=== PATIENT | female | born 1990 | race American Indian/Alaskan Native ===

== ENCOUNTER 2016-04-16 09:50 | Emergency (ER) | payer MEDICAID ==
[2016-04-16 10:07] VITALS: BP 142/76
--- NOTE | 2016-04-16 10:19 | Emergency Department Report ---
Chief Complaint: Vaginal Bleeding Stated Complaint: 8 WKS / RT SIDE PAIN Time Seen by Provider: 04/16/16 10:13 - HPI History of Present Illness: 25-year-old female presents today with right-sided lower abdominal pain since 4 AM. Patient is currently 8 weeks and admits to having some muscle spotting this morning. Denies fever, chills, nausea, vomiting, urinary symptoms , chest pain, shortness of breath. - ROS Review of Systems: Per HPI - Exam Vital Signs: Vital Signs 04/16/16 10:03 Temperature 98.3 F Pulse Rate 86 Respiratory 20 Rate Blood Pressure 142/76 O2 Sat by Pulse 100 Oximetry Physical Exam: General: 25-year-old female in no acute distress. Well-developed, well- nourished. CV: Regular rate and rhythm. Lungs: Clear to auscultation bilaterally. Abdomen: Tenderness to palpation of right lower quadrant. Positive for minimal guarding. Normal bowel sounds. MSE screening note: Focused history and physical exam performed. Due to findings the following was ordered: ED Disposition for MSE Condition: Stable
[2016-04-16 11:10] LABS: Basophils % (Auto) 0.2 % (0.0-1.8); Eosinophils % (Auto) 1.1 % (0.0-4.3); Hematocrit 36.6 % (30.3-42.9); Hemoglobin 12.1 gm/dl (10.1-14.3); Mean Corpuscular HGB Conc 33 % (30-34); Mean Corpuscular Hemoglobin 29 pg (28-32); Mean Corpuscular Volume 89 fl (79-97); Platelet Count 236 K/mm3 (140-440); Red Blood Count 4.13 M/mm3 (3.65-5.03); Red Cell Distribution Width 14.2 % (13.2-15.2); White Blood Count 10.5 K/mm3 (4.5-11.0)
[2016-04-16 11:23] LABS: Bilirubin,Urine NEG (Negative); Blood,Urine NEG (Negative); Ketones,Urine NEG (Negative); Leukocyte Esterase,Urine NEG (Negative); Mucus,Urine FEW /HPF; Nitrite,Urine NEG (Negative); Protein,Urine <15 mg/dL mg/dL (Negative); Urobilinogen,Urine < 2.0 mg/dL (<2.0)
[2016-04-16 11:24] LABS: Bacteria,Urine 1+ /HPF (Negative); WBC,Urine < 1.0 /HPF (0.0-6.0)
[2016-04-16 11:31] LABS: Anion Gap 20 mmol/L; BUN/Creatinine Ratio 18.57; Blood Urea Nitrogen 13 mg/dL (7-17); Calcium 9.3 mg/dL (8.4-10.2); Carbon Dioxide 22 mmol/L (22-30); Chloride 104.6 mmol/L (98-107); Glucose 87 mg/dL (65-100); Potassium 4.3 mmol/L (3.6-5.0); Sodium 142 mmol/L (137-145)
--- NOTE | 2016-04-16 14:18 | Ultrasound Report ---
ULTRASOUND OB LESS THAN 14 WEEKS - TRANSABDOMINAL AND TRANSVAGINAL INDICATION: Vaginal spotting, bleeding. Serum beta-hCG of 12,798 units. COMPARISON: None similar during this gestation. FINDINGS: Transabdominal and transvaginal pelvic sonography performed in this patient with LMP of 02/20/2016 and estimated menstrual age of 8 weeks and zero days. An anteverted, gravid uterus measuring approximately 8 x 5.6 x 6.6 cm demonstrates a single, live intrauterine gestation with heart rate of 109 beats per minute. Approximately 1.9 x 1.2 cm mid uterine fibroid posteriorly, endovaginal image 27. Mean crown-rump length of 0.4 cm corresponds to 6 weeks and zero days. Mean gestational sac diameter of 1.3 cm corresponds to 6 weeks and 1 day. Small, 4-5 mm yolk sac also seen. No significant free fluid. Cervix appears closed. Maternal right ovary not seen. Left ovary approximately 4.3 x 2.7 x 3.1 cm with an approximately 2.2 cm complex/hemorrhagic cyst. CONCLUSION: 1. Single, live intrauterine gestation with an ultrasound estimated age of 6 weeks and 1 day and DESIREE of 12/09/2016. 2. Few other findings, as above. Thank you for the opportunity to participate in this patient's care.
== END 2016-04-16 10:45 | disposition left against medical advice (07) ==
LOC: ED 09:50
DX: O26.891 Other specified pregnancy related conditions, first trimester (principal); R10.31 Right lower quadrant pain; Z3A.08 8 weeks gestation of pregnancy; Z88.8 Allergy status to other drugs, medicaments and biological substances; Z53.21 Procedure and treatment not carried out due to patient leaving prior to being seen by health care provider
CPT/HCPCS: 36415; 76801; 76817; 80048; 81001; 84702; 85025; 86900; 86901

== ENCOUNTER 2016-06-19 22:01 | Emergency (ER) | payer MEDICAID ==
[2016-06-19 22:13] VITALS: BP 129/74
[2016-06-19 22:34] LABS: Basophils % (Auto) 0.2 % (0.0-1.8); Eosinophils % (Auto) 1.4 % (0.0-4.3); Hematocrit 32.5 % (30.3-42.9); Hemoglobin 10.7 gm/dl (10.1-14.3); Mean Corpuscular HGB Conc 33 % (30-34); Mean Corpuscular Hemoglobin 29 pg (28-32); Mean Corpuscular Volume 87 fl (79-97); Platelet Count 205 K/mm3 (140-440); Red Blood Count 3.73 M/mm3 (3.65-5.03); Red Cell Distribution Width 13.7 % (13.2-15.2); White Blood Count 12.2 K/mm3 (4.5-11.0)
[2016-06-19 22:46] LABS: Alanine Aminotransferase 37 units/L (7-56); Albumin 3.3 g/dL (3.9-5); Albumin/Globulin Ratio 1.1 %; Alkaline Phosphatase 72 units/L (35-129); Anion Gap 19 mmol/L; Bilirubin,Total < 0.20 mg/dL (0.1-1.2); Blood Urea Nitrogen 8 mg/dL (7-17); Calcium 8.6 mg/dL (8.4-10.2); Carbon Dioxide 19 mmol/L (22-30); Chloride 103.7 mmol/L (98-107); Glucose 99 mg/dL (65-100); Lipase 26 units/L (13-60); Sodium 138 mmol/L (137-145); Total Protein 6.4 g/dL (6.3-8.2)
[2016-06-19 23:11] LABS: Bacteria,Urine 1+ /HPF (Negative); Bilirubin,Urine NEG (Negative); Blood,Urine NEG (Negative); Ketones,Urine NEG (Negative); Leukocyte Esterase,Urine NEG (Negative); Mucus,Urine FEW /HPF; Nitrite,Urine NEG (Negative); Protein,Urine <15 mg/dL mg/dL (Negative); Urobilinogen,Urine < 2.0 mg/dL (<2.0)
--- NOTE | 2016-06-21 15:22 | ED Elopement Review ---
ED Pt Elopement review - Results review Lab results: Laboratory Tests 06/19/16 06/19/16 06/19/16 22:10 22:10 22:10 WBC 12.2 H RBC 3.73 Hgb 10.7 Hct 32.5 MCV 87 MCH 29 MCHC 33 RDW 13.7 Plt Count 205 Lymph % (Auto) 23.7 Kerr % (Auto) 5.7 Eos % (Auto) 1.4 Baso % (Auto) 0.2 Lymph # 2.9 Kerr # 0.7 Eos # 0.2 Baso # 0.0 Seg Neutrophils % 69.0 Seg Neutrophils # 8.4 H Sodium 138 Potassium 4.0 Chloride 103.7 Carbon Dioxide 19 L Anion Gap 19 BUN 8 Creatinine 0.5 L Estimated GFR > 60 BUN/Creatinine Ratio 16.00 Glucose 99 Calcium 8.6 Total Bilirubin < 0.20 AST 23 ALT 37 Alkaline Phosphatase 72 Total Protein 6.4 Albumin 3.3 L Albumin/Globulin Ratio 1.1 Lipase 26 HCG, Quant 97207 H Urine Color Urine Turbidity Urine pH Ur Specific Proctor Urine Protein Urine Glucose (UA) Urine Ketones Urine Blood Urine Nitrite Urine Bilirubin Urine Urobilinogen Ur Leukocyte Esterase Urine WBC (Auto) Urine RBC (Auto) U Epithel Cells (Auto) Urine Bacteria (Auto) Urine Mucus 06/19/16 Unknown WBC RBC Hgb Hct MCV MCH MCHC RDW Plt Count Lymph % (Auto) Kerr % (Auto) Eos % (Auto) Baso % (Auto) Lymph # Kerr # Eos # Baso # Seg Neutrophils % Seg Neutrophils # Sodium Potassium Chloride Carbon Dioxide Anion Gap BUN Creatinine Estimated GFR BUN/Creatinine Ratio Glucose Calcium Total Bilirubin AST ALT Alkaline Phosphatase Total Protein Albumin Albumin/Globulin Ratio Lipase HCG, Quant Urine Color Yellow Urine Turbidity Clear Urine pH 7.0 Ur Specific Proctor 1.021 Urine Protein <15 mg/dl Urine Glucose (UA) Neg Urine Ketones Neg Urine Blood Neg Urine Nitrite Neg Urine Bilirubin Neg Urine Urobilinogen < 2.0 Ur Leukocyte Esterase Neg Urine WBC (Auto) 2.0 Urine RBC (Auto) 2.0 U Epithel Cells (Auto) 6.0 Urine Bacteria (Auto) 1+ Urine Mucus Few - Call Back decision Pt Call Back Decision: No action required
== END 2016-06-19 22:55 | disposition left against medical advice (07) ==
LOC: ED 22:01
DX: O20.9 Hemorrhage in early pregnancy, unspecified (principal); Z3A.16 16 weeks gestation of pregnancy; Z53.21 Procedure and treatment not carried out due to patient leaving prior to being seen by health care provider
CPT/HCPCS: 36415; 80053; 81001; 83690; 84702; 85025

== ENCOUNTER 2016-06-27 00:01 | Emergency (ER) | payer MEDICAID ==
[2016-06-27 01:48] LABS: Basophils % (Auto) 0.2 % (0.0-1.8); Hemoglobin 10.8 gm/dl (10.1-14.3); Mean Corpuscular HGB Conc 33 % (30-34); Mean Corpuscular Hemoglobin 28 pg (28-32); Mean Corpuscular Volume 87 fl (79-97); Platelet Count 213 K/mm3 (140-440); Red Blood Count 3.81 M/mm3 (3.65-5.03); Red Cell Distribution Width 13.8 % (13.2-15.2); White Blood Count 12.2 K/mm3 (4.5-11.0)
[2016-06-27 03:02] LABS: Bilirubin,Urine NEG (Negative); Blood,Urine NEG (Negative); Ketones,Urine NEG (Negative); Leukocyte Esterase,Urine NEG (Negative); Mucus,Urine 3+ /HPF; Nitrite,Urine NEG (Negative); Protein,Urine <15 mg/dL mg/dL (Negative); Urobilinogen,Urine < 2.0 mg/dL (<2.0)
--- NOTE | 2016-06-27 03:53 | Ultrasound Report ---
FINAL REPORT EXAM: US OB \T\gt; = 14 WEEKS FETUS HISTORY: vaginal bleeding COMPARISON: None available. TECHNIQUE: Several real-time grayscale and color Doppler images were obtained. FINDINGS: Single live IUP. Estimated gestational age 16 weeks 4 days. Estimated delivery date December 08, 2016. heart rate 141 beats per minute. Estimated weight 153 grams. Cervix is closed and measures 3.2 centimeters in length. BPD 3.7 centimeter 17 weeks 1 day head circumference 13.2 centimeter 16 weeks 6 days. Abdominal circumference 10.7 centimeters 16 weeks 4 days femoral length 2.0 centimeters 15 weeks 6 days. position vertex. Placenta location posterior. No placenta previa. Gross normal amount of amniotic fluid. Visualized portions of the stomach, kidneys, urinary bladder, heart, cerebral ventricles are unremarkable. Three-vessel umbilical cord with abdominal insertion. IMPRESSION: Single live IUP. Estimated gestational age 16 weeks 4 days. Estimated delivery date December 08, 2016. No gross or placental abnormality.
[2016-06-27] MEDS ORDERED: NORCO 5/325 PO ONE (07:38)
--- NOTE | 2016-06-27 07:44 | Emergency Department Report ---
ED HPI - General Chief complaint: Vaginal Bleeding Stated complaint: PREG 17WKS/BLEEDING/CRAMPING Time Seen by Provider: 06/27/16 07:30 Source: patient, RN notes reviewed Mode of arrival: Ambulatory Limitations: No Limitations - History of Present Illness Initial comments: 25-year-old female presents to the emergency department complaining of pelvic pain and vaginal bleeding. Patient states she has been having cramping pain for the past 4-5 days. Pain became more severe yesterday. She also reports pain in her lower back. Pain has been intermittent. She reports initially yesterday, she had some vaginal spotting. The bleeding has stopped, but the patient still reports leaking fluid. There are no other complaints. MD Complaint: abdominal pain, vaginal bleeding -: Gradual, days(s) (5) Location: pelvis Radiation: none Severity: severe Severity scale (0 -10): 8 Quality: cramping Consistency: intermittent Improves with: none Worsens with: none Vaginal bleeding: light :: Yes Number of weeks : 17 OB History - Current : no complications OB History - Previous Pregnancies: no complications Pre-akanksha care: followed by OB - Related Data : 2 Para: 1 Home Medications Medication Instructions Recorded Confirmed Last Taken Butalb/Acetamin/Caff 50-325-40 1 each PO Q4H PRN 06/27/16 06/27/16 06/23/16 [Fioricet] Vitamins 1 tab PO DAILY 06/27/16 06/27/16 06/26/16 Allergies Allergy/AdvReac Type Severity Reaction Status Date / Time prednisone Allergy Swelling Verified 02/18/16 11:34 ED Review of Systems ROS: Stated complaint: PREG 17WKS/BLEEDING/CRAMPING Other details as noted in HPI Comment: All other systems reviewed and negative Gastrointestinal: abdominal pain Genitourinary: abnormal menses ED Past Medical Hx - Past Medical History Previous Medical History?: Yes Hx Asthma: Yes Additional medical history: vaginal delivery 10-11-2009 - Surgical History Past Surgical History?: No - Family History Family history: no significant - Social History Smoking Status: Never Smoker Substance Use Type: None - Medications Home Medications: Home Medications Medication Instructions Recorded Confirmed Last Taken Type Butalb/Acetamin/Caff 50-325-40 1 each PO Q4H PRN 06/27/16 06/27/16 06/23/16 History [Fioricet] Vitamins 1 tab PO DAILY 06/27/16 06/27/16 06/26/16 History ED Physical Exam - General Limitations: No Limitations General appearance: alert, in no apparent distress - Head Head exam: Present: atraumatic, normocephalic - Eye Eye exam: Present: normal appearance, PERRL, EOMI - ENT ENT exam: Present: normal exam, normal orophraynx, mucous membranes moist - Neck Neck exam: Present: normal inspection, full ROM. Absent: tenderness - Respiratory Respiratory exam: Present: normal lung sounds bilaterally. Absent: respiratory distress - Cardiovascular Cardiovascular Exam: Present: regular rate, normal rhythm, normal heart sounds - GI/Abdominal GI/Abdominal exam: Present: soft, tenderness (mild suprapubic tenderness to palpation), normal bowel sounds. Absent: distended, guarding, rebound - External exam: Present: normal external exam (clear fluid noted on the stretcher ) - Extremities Exam Extremities exam: Present: normal inspection, full ROM. Absent: tenderness - Back Exam Back exam: Present: normal inspection, full ROM. Absent: tenderness - Neurological Exam Neurological exam: Present: alert, oriented X3. Absent: motor sensory deficit - Skin Skin exam: Present: warm, dry, intact ED Course Vital Signs 06/27/16 06/27/16 06/27/16 01:16 07:51 08:30 Temperature 98.9 F Pulse Rate 91 H 72 Respiratory 18 Rate Blood Pressure 128/94 Blood Pressure 131/104 85/34 [Left] O2 Sat by Pulse 100 99 Oximetry 06/27/16 06/27/16 06/27/16 08:33 09:01 09:16 Temperature Pulse Rate Respiratory Rate Blood Pressure 98/59 98/68 Blood Pressure 92/68 [Left] O2 Sat by Pulse Oximetry 06/27/16 06/27/16 06/27/16 09:31 10:01 10:30 Temperature Pulse Rate Respiratory Rate Blood Pressure 118/49 116/44 120/95 Blood Pressure [Left] O2 Sat by Pulse Oximetry 06/27/16 06/27/16 11:01 11:30 Temperature Pulse Rate Respiratory Rate Blood Pressure 120/40 109/47 Blood Pressure [Left] O2 Sat by Pulse Oximetry ED Medical Decision Making - Lab Data Result diagrams: 06/27/16 01:27 - Radiology Data Radiology results: report reviewed ultrasound reveals a single, live intrauterine with estimated gestational age of 16 weeks 4 days. The cervix appears closed. There is a grossly normal amount of amniotic fluid. - Medical Decision Making Lab results reviewed and discussed with the patient. I've spoken with Marcie, nurse dean of faculty for Dr. Hastings. Sterile speculum exam performed at the bedside shows no evidence of membrane rupture per Marcie. Patient will be discharged home at this time to follow up in their office next week. - Differential Diagnosis threatened miscarriage, premature rupture of membranes Critical care attestation.: If time is entered above; I have spent that time in minutes in the direct care of this critically ill patient, excluding procedure time. ED Disposition Clinical Impression: Vaginal discharge during in second trimester Disposition: DISCHARGED TO HOME OR SELFCARE Is pt being admited?: No Condition: Stable Instructions: Abdominal Pain in (ED) Referrals: ELISE TRAVIS MD [Staff Physician] - 3-5 Days Time of Disposition: 13:46
[2016-06-27] MEDS ORDERED: NACL 0.9% 1000 ML 1,000 ML ONE (08:38)
[2016-06-27] MEDS ORDERED: NACL 0.9% 1000 ML 1,000 ML IV ONE (08:41)
[2016-06-27 14:05] VITALS: BP 121/49
== END 2016-06-27 14:06 | disposition home or self-care (01) ==
LOC: ED 00:01
DX: O26.891 Other specified pregnancy related conditions, first trimester (principal); N89.8 Other specified noninflammatory disorders of vagina; Z3A.17 17 weeks gestation of pregnancy; J45.909 Unspecified asthma, uncomplicated; Z88.8 Allergy status to other drugs, medicaments and biological substances
CPT/HCPCS: 36415; 76805; 81001; 84702; 85025; 86850; 86900; 86901; 96360; 99284; J7030

== ENCOUNTER 2016-08-23 02:48 | Outpatient (CLI) | payer MEDICAID ==
[2016-08-23 03:07] VITALS: BP 132/85
[2016-08-23 04:05] LABS: Bacteria,Urine 1+ /HPF (Negative); Bilirubin,Urine NEG (Negative); Blood,Urine NEG (Negative); Ketones,Urine NEG (Negative); Leukocyte Esterase,Urine TR (Negative); Nitrite,Urine NEG (Negative); Protein,Urine <15 mg/dL mg/dL (Negative); Urobilinogen,Urine < 2.0 mg/dL (<2.0)
[2016-08-23 04:10] LABS: Urine Drugs of Abuse Note Disclamer
[2016-08-23] MEDS ORDERED: LACTATED RINGERS 1,000 ML ONE (04:53)
[2016-08-23] MEDS ORDERED: LACTATED RINGERS 1,000 ML IV ONE (05:10)
[2016-08-23] MEDS ORDERED: TYLENOL #3 PO ONE (05:48)
== END 2016-08-23 07:13 | disposition home or self-care (01) ==
LOC: TRG 02:48
PROVIDERS: ATTEND Obstetrics & Gynecology
DX: O46.92 Antepartum hemorrhage, unspecified, second trimester (principal); O26.892 Other specified pregnancy related conditions, second trimester; R10.9 Unspecified abdominal pain; Z87.891 Personal history of nicotine dependence; Z3A.25 25 weeks gestation of pregnancy
CPT/HCPCS: 59025; 80307; 81001; 96360; 96361; 96365; J7120

== ENCOUNTER 2016-11-21 16:28 | Day surgery (SDC) | payer MEDICAID ==
--- NOTE | 2016-11-21 17:10 | Anesthesia Consultation ---
Anesthesia Consult and Med Hx Date of service: 11/21/16 - Airway Anesthetic Teeth Evaluation: Good ROM Head & Neck: Adequate Mental/Hyoid Distance: Adequate Mallampati Class: Class II Intubation Access Assessment: Probably Good - Pulmonary Exam CTA: Yes - Cardiac Exam Cardiac Exam: RRR - Pre-Operative Health Status ASA Pre-Surgery Classification: ASA2 Proposed Anesthetic Plan: Local - Pulmonary Hx Asthma: Yes (no inhaler) COPD: No Hx Pneumonia: No - Cardiovascular System Hx Hypertension: No - Central Nervous System Hx Seizures: No Hx Psychiatric Problems: No - Endocrine Hx Renal Disease: No Hx End Stage Renal Disease: No Hx Hypothyroidism: No Hx Hyperthyroidism: No - Hematic Hx Anemia: No Hx Sickle Cell Disease: No - Other Systems Hx Alcohol Use: No Hx Obesity: Yes
--- NOTE | 2016-11-21 17:16 | Post Operative Note ---
Pre-op diagnosis: Post dural puncture headache Post-op diagnosis: same Findings: Patient is postop from C section [address] Trino Jang. [address] Jang evaluated patient in office today and refered her to [facility] for management of post dural puncture headache. Patient was positioned sitting on stretcher. Lower back prepped and draped with standard epidural drape. Skin and subcutaneous tissue over L3-L4 space was anethetize with 3cc of lidocaine 1% . 18g touhy needle was inserted into L3-L4 space and epidural space was identified using loss of resistance to saline. 20cc of blood was aspirated from patients left antecubital vein. blood was slowly injected into epidural needle. After approximately 16 cc of blood was injected, patient stated that she was feeling significant pressure in her lower back and that her headache was subsiding. At that time I deemed the procedure complete and successful. Procedure: Epidural blood patch Anesthesia: local Surgeon: HELDER ALVARADO Rail Loader: LIZBETH HARRIS Estimated blood loss: none Pathology: none Condition: stable Disposition: same day
--- NOTE | 2016-11-23 08:52 | Progress Note ---
Subjective Date of service: 11/23/16 Interval history: Spoke to patient over the phone yesterday. She stated that she is having significant lower back pain/pressure since the blood patch. I told her that this is a common symptom after having a blood patch but if it is too severe that she should go to the ED to be evaluated.
== END 2016-11-21 16:29 | disposition home or self-care (01) ==
LOC: OR 16:28
PROVIDERS: ATTEND Anesthesiology Pain Medicine
DX: G97.1 Other reaction to spinal and lumbar puncture (principal); J45.909 Unspecified asthma, uncomplicated; E66.9 Obesity, unspecified
CPT/HCPCS: 62273